=== PATIENT | female | born 1945 | race Two or more races ===

== ENCOUNTER → 2016-09-12 | Outpatient (CLI) | payer MEDICARE, BC ==
[~2016-09-12] MED LIST: ALEN70TA30 PO; ASPI325T32 PO; HYDR-3498 PO; SIMV-39 PO; TRAM-40 PO
--- NOTE | 2016-09-12 10:07 | RADRPT ---
PROCEDURE: XR left knee. CLINICAL INDICATION: Knee pain. TECHNIQUE: AP weightbearing, lateral weightbearing and sunrise views are available for review. COMPARISON: 03/14/2016 FINDINGS: There is a total knee replacement. There is no evidence of loosening of the prosthesis. There is no evidence of hardware failure. The osseous structures are normal in mineralization, architecture and alignment No acute fracture or dislocation is seen.No osseous lesions are identified. The soft tiss ues are unremarkable . there is a suprapatellar joint effusion. IMPRESSION: Suprapatellar joint effusion Unremarkable total knee replacement. RPTAT: [facility] .Vignesh Perea MD, MD Date Time Electronically viewed and signed by .Vignesh Perea MD, on 09/12/2016 10:07 .B/
== END | disposition home or self-care (01) ==
LOC: HKI 10:52
PROVIDERS: ATTEND Orthopaedic Surgery
DX: Z47.89 Encounter for other orthopedic aftercare (principal); Z96.652 Presence of left artificial knee joint
CPT/HCPCS: 73562; G0463